=== PATIENT | male | born 1970 | race Caucasian/White ===

== ENCOUNTER 2021-01-16 14:27 | Outpatient (CLI) | payer OTHER | END 2021-01-16 14:28 | disposition home or self-care (01) | LOC: NAV RAD 14:27 | PROVIDERS: ATTEND Family Medicine | DX: M79.7 Fibromyalgia (principal); M47.816 Spondylosis without myelopathy or radiculopathy, lumbar region; I70.0 Atherosclerosis of aorta | CPT/HCPCS: 72100 ==